=== PATIENT | female | born 1990 | race Hispanic/Latino ===

== ENCOUNTER 2024-05-06 12:45 | Emergency (ER) | payer MEDICAID, SELFPAY | END 2024-05-06 15:21 | disposition home or self-care (01) | LOC: ERS 12:45 | DX: Z76.0 Encounter for issue of repeat prescription (principal) | CPT/HCPCS: 99281 ==

== ENCOUNTER 2024-05-07 19:05 | Emergency (ER) | payer MEDICAID ==
[2024-05-07] MEDS ORDERED: Ondansetron ODT 4 MG TAB ONE (19:48)
[2024-05-07] MEDS ORDERED: Ibuprofen 800 MG TAB ONE (19:48)
[2024-05-07 21:09] LABS: Influenza A by NAA Not Detected (NotDetected); Influenza B by NAA Not Detected (NotDetected); SARS-CoV-2 NAA Rapid Test Not Detected (NotDetected)
== END 2024-05-07 21:50 | disposition home or self-care (01) ==
LOC: ERS 19:05
DX: J06.9 Acute upper respiratory infection, unspecified (principal); F17.290 Nicotine dependence, other tobacco product, uncomplicated; Z59.811 Housing instability, housed, with risk of homelessness
CPT/HCPCS: 99281; 99283; Q0162